=== PATIENT | female | born 1950 | race Caucasian/White ===

== ENCOUNTER 2022-09-20 09:18 | Day surgery (SDC) | payer OTHER, SELFPAY ==
--- NOTE | 2022-09-19 23:29 | ED.NURSE ---
Off-site pharmacy called to verify allergies. Per [facility], Pt is not on property and is scheduled for surgery 09/20 at 1100. Pharmacy informed.
[2022-09-20 09:39] VITALS: BP 129/70; PULSE 67; RESP 16; TEMP 36.7; O2SAT 96; BMI 25.3
[2022-09-20 10:01] VITALS: BP 126/82; PULSE 71; RESP 16; O2SAT 95
[2022-09-20] MEDS: BUPIVACAINE 0.5% 30 ML 5 ML INJECTION (10:04)
[2022-09-20 10:05] VITALS: BP 134/81; PULSE 72; RESP 16; O2SAT 95
[2022-09-20 10:10] VITALS: BP 137/71; PULSE 72; RESP 17; O2SAT 95
[2022-09-20 10:15] VITALS: BP 111/58; PULSE 71; RESP 16; O2SAT 95
--- NOTE | 2022-09-20 10:15 | CRLHL7_ITS ---
For Patients: As a result of the Cures Act, medical imaging exams and procedure reports are released immediately into your electronic medical record. You may view this report before your referring provider. If you have questions, please contact your health care provider. Indication: Intra op study for fusion Technique: One fluoroscopic image of the right foot. Fluoroscopic time 0.6 seconds. IMPRESSION: Fluoroscopic guidance for surgery across the 1st MTP joint. Dictated by Bart Valiente MD @ 09/20/2022 3:59:50 PM (Electronically Signed)
[2022-09-20 10:23] VITALS: BP 115/75; PULSE 62; RESP 16; TEMP 36.6; O2SAT 93
--- NOTE | 2022-09-20 10:25 | PM.PROC ---
Procedure Note Date Seen: 09/20/22 Date of procedure: 09/20/22 Will [facility] bill your pro fee for this procedure?: No Pre-op diagnosis: Painful hardware right foot Post-op diagnosis: same Procedure: removal of hardware right foot Procedure Description: surgeon: Julio Perez DPM preoperative diagnosis: Painful retained hardware right foot postoperative diagnosis: Painful retained hardware right foot procedure: Removal of hardware right foot anesthesia: Local hemostasis: Ankle tourniquet 250 mm Hg estimated blood loss: Less than 2 mL complications: None apparent indication for surgery : Patient has retained screw is causing pain with medial 1st metatarsal head. He has looked was removed. I reviewed the procedure, recovery, expectations and potential complications. These include infection, continued pain, deep venous thrombosis, pulmonary embolism. Written consent obtained. procedure: Patient has been having room placed supine position on operating table. Local anesthetic injected into the right foot. 5 mL of 0.5% Marcaine plain. The foot was prepped and draped in a sterile fashion. Standard time-out protocol followed. Right foot was exsanguinated and the tourniquet inflated. 1 cm incision made directly over the screw head. Blunt dissection clear to soft tissues away from the screw head. Screw was removed without complication. Wound was irrigated normal sterile saline. Subcutaneous tissues reapproximated with 4-0 Monocryl. Skin closed with Dermabond. Tourniquet was released and normal capillary fill time returned all digits. No active bleeding. Sterile Band-Aid applied. She was transferred from OR to PACU vital signs stable and vascular status intact. she is Given written and verbal postop instructions. Anesthesia: local Surgeon: Julio Perez DPM Estimated blood loss (mL): 1 Condition: stable Disposition: same day
--- NOTE | 2022-09-20 10:25 | SUR.OPER ---
TIME OUT PERFORMED PRIOR TO INJECTION OF THE LOCAL IN THE RIGHT FOOT AT 10:03.? PATIENT QUESTIONS ANSWERED SATISFACTORILY PREOPERATIVELY.? PATIENT BROUGHT TO OR #1 PER CART.? Patient positioned supine on OR #1 bed.? The perioperative?team supported arms bilaterally on arm boards.? Final approval of positioning by surgeon.?
== END 2022-09-20 10:45 | disposition home or self-care (01) ==
PROVIDERS: PCP Physician Assistant Medical; Visit Provider Podiatrist
PROC: (CPT 20680; principal; 2022-09-20 11:00)
DX: T84.84XA Pain due to internal orthopedic prosthetic devices, implants and grafts, initial encounter (principal)
CPT/HCPCS: 20680; 73620; J3490